=== PATIENT | male | born 1990 ===

== ENCOUNTER 2023-05-29 19:48 | Inpatient (IN) | payer MEDICAID, SELFPAY ==
[2023-05-29 19:59] VITALS: BP 140/92; PULSE 61; RESP 18; TEMP 36.8; O2SAT 99
[2023-05-29 20:02] VITALS: BMI 21.1
[2023-05-29 20:43] VITALS: BP 140/92; PULSE 61; RESP 18; TEMP 36.8; O2SAT 99
[2023-05-29] MEDS: nicotine 2 mg Gum BUCCAL (20:48)
[2023-05-30 06:00] VITALS: BP 118/78; PULSE 55; RESP 20; TEMP 36.6; O2SAT 98
--- NOTE | 2023-05-30 06:40 | W.PM.NPUH&PS ---
Providers/Chief Complaint Admitting Physician: Nasim Casarez MD [facility] NPU History of Present Illness Yosi Garcia is a 32 year old male who presented to the outside emergency department reporting suicidal thoughts and some symptoms of psychosis. He reports that he had been on previous medications but he is unclear how effective they were. He was transferred to [facility] and admitted to the neuropsychiatric unit for definitive treatment of those issues. CHIEF COMPLAINT Patient was brought to the hospital by his mother, but he doesn't believe he has any issues. HISTORY OF THE PRESENT COMPLAINT The patient, Yosi, reported that he has been admitted to a psychiatric hospital three times, including the current admission. He mentioned that he has been attending some classes, but did not specify the nature of these classes. He reported that he has not been taking any psychiatric medication regularly. Previously, he was prescribed Effexor, Prazosin, and Abilify, but he stopped taking them due to stomach discomfort. He could not recall the name of another medication that was given to him. Yosi reported that he smokes about a pack of cigarettes a day. He does not drink alcohol or use marijuana frequently. He denied any use of cocaine, methamphetamines, or opiates. He has never been to rehab, but he has been charged with paraphernalia, underage drinking, and possession. Regarding his mental health, Yosi stated that he does not have many issues and that he was doing well before his hospital admission. He mentioned that he was brought to the hospital because his mother was having problems, but he did not specify what these problems were. He reported that he was not experiencing depression or anxiety, and he did not feel that he was struggling with anything. He mentioned that he sometimes hears voices or sees things that others cannot, but he did not specify the frequency or severity of these experiences. He also reported frequent nightmares, but did not provide details about these nightmares. Yosi expressed frustration with his current situation, stating that he has been trying to get away from community outreach and the cycle of being in county or group home. He reported that he has been given various medications in response to his complaints about his situation. Yosi reported that he has three children, aged between 7 and 16, but he has not spoken to them in a while. He has been in a relationship with one person for 12 years, but it is unclear whether they are currently together. He has held a job for four years, doing labor work in a restaurant. He currently lives in a house with his mother. He has been in residential or group home twice, with the longest sentence being two years. Regarding his mood, Yosi did not report any current thoughts of self-harm or harm to others. He did not report any current feelings of paranoia or hallucinations. He did not raise any concerns or ask any questions during the consultation. MENTAL HEALTH HISTORY Patient has been in a psychiatric hospital twice before. He has been prescribed Effexor, prazosin and Abilify in the past but stopped due to stomach issues. He has also been involved in community outreach programs. SOCIAL HISTORY Patient smokes a pack of cigarettes a day. He doesn't drink alcohol often and doesn't use cannabis or other drugs. He has been in residential twice, the longest time being two years. He has three children whom he doesn't have contact with. He has worked in labor for four years. He currently lives with his mother. Meds NPU Home Medications Medication Instructions Recorded Confirmed Last Taken Type No Known Home Medications 05/29/23 05/29/23 Unknown History Allergies Allergy/AdvReac Type Severity Reaction Status Date / Time Penicillins Allergy Unknown ALGY-Anaphy Verified 05/29/23 20:10 laxis Mental Status Exam MSE Comments: This is an underweight white male in hospital scrubs with limited grooming and eye contact. No abnormal movements except for. Mostly cooperative with exam in mild distress. Speech was decreased rate normal volume. Mood described as okay, affect odd. Thought process organized but confused at times. Thought content: Patient denied current suicidal or homicidal ideation, there were no delusions reported and he seemed somewhat guarded, he endorsed auditory but denied visual hallucinations. Patient denies having depression or anxiety. He admits to occasional paranoia and hearing voices, but doesn't consider it a problem. Attention and concentration were limited and memory seemed unreliable at times but none were formally tested. He is alert and oriented times person and place. Insight, judgment and impulse control are limited versus impaired. Vitals/I&O/Wt Last Vital Signs Temp 97.9 F 05/30/23 06:00 Pulse 55 L 05/30/23 06:00 Resp 20 H 05/30/23 06:00 BP 118/78 05/30/23 06:00 Pulse Ox 98 05/30/23 06:00 O2 Del Method Room Air 05/30/23 06:00 Weight last 48 hrs Weight 61.235 kg A&P Assessment and plan (1) Psychosis: Plan This is a 32year old white male with possible history of trauma who presents with ambiguous symptoms that seem consistent with psychosis and seems to be in denial about his mental health issues. He has a history of non-compliance with medication and has been in a psychiatric hospital twice before. 1.Continue current medications 2.start Invega 6 mg p.o. daily. 3.Encourage individual, group and milieu therapy 4.Continue q-15 minute check for safety 5.Get some collateral information. Involuntary Hold Information 96 Hour Hold: 96 Hour Involuntary Admission: No Attestations NPU Medical Necessity Statement*: Inpatient hospitalization is medically necessary and the clinically appropriate intervention at this time. We will monitor medications and make changes as indicated. Patient will be in the hospital for over two midnights. Likely length of stay is 3-5 days. Coding Level of Care Code Acute Code for [facility] Diagnoses Psychosis F29
[2023-05-30] MEDS: nicotine 2 mg Gum BUCCAL ×5 (07:46→21:54)
[2023-05-30] MEDS: multivitamin therapeutic Tablet 1 TAB PO (09:37)
[2023-05-30] MEDS: thiamine 100 mg Tablet PO (09:37)
[2023-05-30] MEDS: folic acid 1 mg Tablet PO (09:37)
--- NOTE | 2023-05-30 09:48 | PC.NURSE ---
Patient requested trileptal this morning and states he takes it at home. When asked what pharmacy he obtained them from and what doctor, he could not provide either. This RN then called [facility], the hospital he was transferred from, and they stated he did not verify his medications as he couldn't give them a current pharmacy either.
--- NOTE | 2023-05-30 12:12 | PC.NURSE ---
Patient's mother called and verified that the patient uses [facility] in [place], [place]. This RN then called the pharmacy and verified Dr. German Cook, from [facility] in [place], [place], had prescribed him venlafaxine 150mg once daily in the morning, prazosin 1mg once daily at bedtime, wellbutrin xl 150mg once daily, and abilify 20mg once daily. However, they stated he had never picked up the medications. Dr. Casarez was notified and no new orders were given at this time.
[2023-05-30] MEDS: paliperidone ER 6 mg Tablet PO (12:40)
[2023-05-30 12:57] VITALS: BP 129/93; PULSE 61; RESP 16; TEMP 36.8; O2SAT 98
[2023-05-30 20:49] VITALS: BP 124/89; PULSE 76; RESP 16; TEMP 37; O2SAT 96
--- NOTE | 2023-05-30 21:11 | PC.NURSE ---
IN BED RESTING, DENIES SI/HI AND AVH AT THIS TIME. RATES ANXIETY AND DEPRESSION 0/10. PT DENIES THE NEED FOR ANY PRN MEDICATIONS AT THIS TIME. DENIES PAIN. ALL QUESTIONS ANSWERED AND SUPPORT VOICED.
[2023-05-31 06:00] VITALS: BP 122/86; PULSE 84; RESP 18; TEMP 36.7; O2SAT 98
[2023-05-31] MEDS: paliperidone ER 6 mg Tablet PO (08:57)
[2023-05-31] MEDS: multivitamin therapeutic Tablet 1 TAB PO (08:57)
[2023-05-31] MEDS: folic acid 1 mg Tablet PO (08:57)
[2023-05-31] MEDS: ondansetron 4 MG Tablet PO (08:57)
[2023-05-31] MEDS: thiamine 100 mg Tablet PO (08:57)
[2023-05-31] MEDS: nicotine 2 mg Gum BUCCAL ×3 (08:59→15:20)
[2023-05-31 13:54] VITALS: BP 136/99; PULSE 70; RESP 13; TEMP 36.9; O2SAT 97
--- NOTE | 2023-05-31 16:15 | PC.NURSE ---
Patient was read 96 hour hold rights. Patient was given a copy of his 96 hour hold paperwork and was asked if he had any questions at this time. Patient expressed that he did not.
--- NOTE | 2023-05-31 18:06 | W.PM.NPUPNS ---
Subjective NPU Subjective: 32-year-old male admitted with psychosis and bizarre behavior. Patient had stated that he needed to leave here and stated that the commercial insurance underwriter of the note was being lied to by his mother. The patient had acknowledged that he had reported having problems with his penis and had reported having a change in its colors as stated on his affidavit. The patient had acknowledged that others were somehow trying to cause him to be here unnecessarily. Previous records were reviewed the patient had been persistently complained of hearing voices and the mother had indeed reported that the patient had been throwing objects at something that was not present. The patient had stated that he had been compliant with his medications including Effexor and prazosin but it was noted that the patient had not filled out his antipsychotic medication after these medications were never picked up from the pharmacy. Mental Status Exam MSE Comments: This is an underweight white male in hospital scrubs with limited grooming and eye contact who was pacing the hallways. No abnormal movements except for psychomotor moderate agitation. Speech was decreased in rate normal volume with increased latency in speech. Mood described as fine. His affect was blunted and mood congruent. Thought process linear but confused later on interview. thought content: Patient denied current suicidal or homicidal ideation, He remained actively paranoid. He endorsed auditory hallucinations but denied visual hallucinations. Patient denies having depression or anxiety. Attention and concentration were limited and memory seemed unreliable at times but none were formally tested. He is alert and oriented times person and place but not time. Insight, judgment and impulse control are limited versus impaired. Vitals/I&O/Wt Last Vital Signs Temp 98.5 F 05/31/23 13:54 Pulse 70 05/31/23 13:54 Resp 13 05/31/23 13:54 BP 136/99 05/31/23 13:54 Pulse Ox 97 05/31/23 13:54 O2 Del Method Room Air 05/31/23 06:00 Weight last 48 hrs Weight 61.235 kg A&P Assessment and plan (1) Psychosis: Plan This is a 32year old white male with possible history of trauma who presents with ambiguous symptoms that seem consistent with psychosis and seems to be in denial about his mental health issues. He has a history of non-compliance with medication and has been in a psychiatric hospital twice before. 1.Patient placed on involuntary hold. 2.Continue Invega 6 mg p.o. daily. 3.Encourage individual, group and milieu therapy 4.Continue q-15 minute check for safety 5.Get some collateral information. Involuntary Hold Information 96 Hour Hold: 96 Hour Involuntary Admission: No Attestations NPU Medical Necessity Statement*: Inpatient hospitalization is medically necessary and the clinically appropriate intervention at this time. We will monitor medications and make changes as indicated. Patient's likely length of stay is 3-5 days. Coding Level of Care Code Acute Code for [facility] Fwd Diagnoses Psychosis F29
[2023-05-31] MEDS: hyDROXYzine 25 mg Capsule 50 MG PO (20:23)
[2023-05-31] MEDS: trazodone 50 mg Tablet PO (20:23)
[2023-05-31 20:24] VITALS: BP 132/84; PULSE 79; RESP 17; TEMP 36.8; O2SAT 98
--- NOTE | 2023-05-31 21:17 | PC.NURSE ---
SITTING UP IN BED. DENIES SI/HI AND AVH AT THIS TIME. PT AFFECT IS FLAT AND HE IS GUARDED WITH STAFF. RATES ANXIETY AND DEPRESSION 0/10 BUT REQUEST ANXIETY MEDIATIONS AND MEDICATIONS FOR SLEEP. PT WAS GIVEN VISTARIL 50 MG ORDERED FOR ANXIETY AND TRAZODONE 50 MG FOR SLEEP. DENIES PAIN. ALL QUESTIONS ANSWERED AND SUPPORT WAS VOICED.
--- NOTE | 2023-06-01 00:46 | PC.NURSE ---
[age] PT CAME OUT TO NURSES STATION STRIPPED OFF HIS CLOTHING. PT WAS EDUCATED TO PUT CLOTHING PT STATED I'M SICK OF YOU TALKING TO YOUR IMAGINARY FRIEND. SO FUCK YOU. PT THEN WENT TO THE BATHROOM ON SOUTH SIDE AND GOT INTO THE SHOWER. SECURITY WAS CALLED FOR STAND BY. PT STATED SOMETHING CAME OVER ME AND I THOUGHT I SHIT MYSELF. PT WAS GIVEN NEW CLOTHING, TOWELS AND INSTRUCTED PT TO PUT CLOTHING ON AND GO TO BED. PT AGREED AND WENT TO BED AND IS CURRENTLY RESTING WITH EYES CLOSED.
--- NOTE | 2023-06-01 05:24 | PC.NURSE ---
PT RECEIVED TRAZODONE AND VISTARIL EARLIER IN THE SHIFT. PT DID AWAKE AROUND MIDNIGHT BUT WAS ABLE TO BE REDIRECTED BACK TO BED. MEDICATIONS DEEMED EFFECTIVE. PT HAS SLEPT APPROXIMATELY 9 HOURS THIS SHIFT. PT CONTINUES TO REST WITH EYES CLOSED NO DISTRESS NOTED.
[2023-06-01 06:00] VITALS: BP 108/73; PULSE 61; RESP 18; O2SAT 98
[2023-06-01] MEDS: nicotine 4 mg lozenge MUCOUS MEM (09:05)
[2023-06-01] MEDS: multivitamin therapeutic Tablet 1 TAB PO (09:22)
[2023-06-01] MEDS: paliperidone ER 6 mg Tablet PO (09:22)
[2023-06-01] MEDS: folic acid 1 mg Tablet PO (09:22)
[2023-06-01] MEDS: thiamine 100 mg Tablet PO (09:22)
--- NOTE | 2023-06-01 09:29 | PC.NURSE ---
patient states that he is feeling okay. Patient denies SI, HI, AVH, depression, and anxiety. Patient took morning meds with no issues
--- NOTE | 2023-06-01 09:30 | PC.NURSE ---
patient states that he is feeling okay. Patient denies SI, HI, AVH, depression, and anxiety. Patient took morning meds with no issues
[2023-06-01] MEDS: nicotine 2 mg Gum BUCCAL ×3 (12:34→20:34)
[2023-06-01 14:00] VITALS: BP 117/74; PULSE 70; RESP 16; TEMP 36.9; O2SAT 96
--- NOTE | 2023-06-01 16:20 | P.NPUPN_ITS ---
Subjective NPU Subjective: 32-year-old male admitted with psychosis and bizarre behavior. The patient reported that he needed to go home. He was unable to elaborate as to why or where he was going to go. He had continued to state that the things that the police and his mother had reported were lysed. He had been unwilling to elaborate regarding the affidavit which had stated that the patient had stated that the patient had made repeated requests for someone to help him with his penis as it had changed colors repeatedly in front of him. The patient had reported that he did not need medications. Patient's mother had prescribed and per provided affidavit suggesting that the patient had been diagnosed with s chizophrenia. He had continued to suggest that the treatment team not speak with the patient's mother. He had remained guarded on the milieu. Patient's mother had reported that the patient had been forgetful and had become obsessed with transformation occurring in his private parts. Mental Status Exam MSE Comments: This is an underweight white male in hospital scrubs with limited grooming and eye contact who was pacing the hallways with a blanket wrapped around his head like a druid. No abnormal movements except for moderate psychomotor agitation. Speech was decreased in rate, normal volume with increased latency in speech. Mood described as okay. His affect was blunted and mood congruent. Thought process was linear but superficial. thought content: Patient denied current suicidal or homicidal ideation, He remained actively paranoid. He denied auditory hallucinations and denied visual hallucinations. Attention and concentration were limited and memory seemed unreliable at times but none were formally tested. He is alert and oriented times person and place but not time. Insight, judgment and impulse control are limited versus impaired. Vitals/I&O/Wt Last Vital Signs Temp 98.5 F 06/01/23 14:00 Pulse 70 06/01/23 14:00 Resp 16 06/01/23 14:00 BP 117/74 06/01/23 14:00 Pulse Ox 96 06/01/23 14:00 O2 Del Method Room Air 06/01/23 06:00 A&P Assessment and plan (1) Psychosis: Plan This is a 32year old white male with possible history of trauma who presents with ambiguous symptoms that seem consistent with psychosis and seems to be in denial about his mental health issues. He has a history of non-compliance with medication and has been in a psychiatric hospital twice before. 1.Patient placed on involuntary hold. 2.Continue Invega 6 mg p.o. daily. 3.Encourage individual, group and milieu therapy 4.Continue q-15 minute check for safety 5.Get some collateral information. Involuntary Hold Information 96 Hour Hold: 96 Hour Involuntary Admission: No Attestations NPU Medical Necessity Statement*: Inpatient hospitalization is medically necessary and the clinically appropriate intervention at this time. We will monitor medications and make changes as indicated. Patient's likely length of stay is 3-5 days. Coding Level of Care Code Acute Code for [facility] Fwd Diagnoses Psychosis F29
[2023-06-01] MEDS: trazodone 50 mg Tablet PO ×3 (20:34→22:00)
[2023-06-01] MEDS: haloperidol 5 mg Tablet PO (20:34)
[2023-06-01 20:41] VITALS: BP 118/76; PULSE 96; RESP 18; TEMP 36.8; O2SAT 97
--- NOTE | 2023-06-01 21:12 | PC.NURSE ---
RESTING IN BED AROUSES TO VOICE. DENIES PAIN. DENIES SI/HI AND AVH AT THIS TIME. RATES ANXIETY AND DEPRESSION 0/10. PT DOES REQUEST ANXIETY MEDICATIONS AND MEDICATIONS TO SLEEP. PT WAS GIVEN TRAZODONE 50 MG ORDERED FOR INSOMNIA AND HALDOL 5 MG FOR INCREASED ANXIETY. PT WAS GIVEN A SECOND DOSE OF TRAZODONE 50MG DUE TO THE FIRST ONE NOT HELPING. PT IS NOTED TO HAVE A FLAT AFFECT AND IS GUARDED WITH STAFF. ALL QUESTIONS ANSWERED AND SUPPORT WAS VOICED.
--- NOTE | 2023-06-02 05:02 | PC.NURSE ---
PT RECEIVED PRN MEDICATIONS EARLY IN THE SHIFT. PT RECEIVED TRAZODONE 50 MG TIMES 2. PT ALSO RECEIVED HALDOL 5 MG FOR REPORTS OF INCREASED ANXIETY. MEDICATIONS DEEMED EFFECTIVE. PT WAS ABLE TO REST THROUGH OUT THE SHIFT AND HAD NO OTHER COMPLAINTS OF ANXIETY. PT WAS ABLE TO SLEEP APPROXIMATELY 8-9 HOURS THIS SHIFT. PT CONTINUES TO REST WITH EYES CLOSED WITH NO DISTRESS NOTED AT THIS TIME.
[2023-06-02 06:00] VITALS: RESP 16
[2023-06-02] MEDS: multivitamin therapeutic Tablet 1 TAB PO (08:18)
[2023-06-02] MEDS: folic acid 1 mg Tablet PO (08:18)
[2023-06-02] MEDS: paliperidone ER 6 mg Tablet PO (08:18)
[2023-06-02] MEDS: thiamine 100 mg Tablet PO (08:19)
[2023-06-02] MEDS: nicotine 2 mg Gum BUCCAL ×3 (08:19→19:58)
[2023-06-02] MEDS: nicotine 4 mg lozenge MUCOUS MEM ×2 (10:32→15:08)
[2023-06-02 14:00] VITALS: BP 135/94; PULSE 87; RESP 20; TEMP 36.8; O2SAT 96
--- NOTE | 2023-06-02 15:05 | W.PM.NPUPNS ---
Subjective NPU Subjective: 32-year-old male admitted with psychosis and bizarre behavior. The patient had continued to report that he wished to go home but was unable to provide any meaningful information as to where he was going to go and how he was going to get home. He had spent much of the day in his room. He had reported being bored here. He continued to make bizarre statements here on the unit and stated that other people around here work told lies and that is why he had come here into the hospital. The patient had been naked on the unit and required signficant promting by nursing staff to put on his clothes yesterday. Mental Status Exam MSE Comments: This is an underweight white male in hospital scrubs with limited grooming and eye contact who was lying in his room with a blanket wrapped around his head. No abnormal movements except for moderate psychomotor agitation. Speech was decreased in rate, normal volume with increased latency in speech. Mood described as fine. His affect was odd and subdued. Thought process was nonlinear and perseverative about wanting to leave. thought content: Patient denied current suicidal or homicidal ideation, He remained actively paranoid. He denied auditory hallucinations and denied visual hallucinations. Attention and concentration were limited and memory seemed unreliable at times but none were formally tested. He is alert and oriented times person and place but not time. Insight, judgment and impulse control are limited versus impaired. Vitals/I&O/Wt Last Vital Signs Temp 98.2 F 06/01/23 20:41 Pulse 96 06/01/23 20:41 Resp 16 06/02/23 06:00 BP 118/76 06/01/23 20:41 Pulse Ox 97 06/01/23 20:41 O2 Del Method Room Air 06/01/23 20:41 A&P Assessment and plan (1) Psychosis: Plan This is a 32year old white male with possible history of trauma who presents with ambiguous symptoms that seem consistent with psychosis and seems to be in denial about his mental health issues. He has a history of non-compliance with medication and has been in a psychiatric hospital twice before. 1.Patient placed on involuntary hold. 2.Increase Invega 9 mg p.o. daily. 3.Encourage individual, group and milieu therapy 4.Continue q-15 minute check for safety 5.Get some collateral information. Involuntary Hold Information 96 Hour Hold: 96 Hour Involuntary Admission: No Attestations NPU Medical Necessity Statement*: Inpatient hospitalization is medically necessary and the clinically appropriate intervention at this time. We will monitor medications and make changes as indicated. Patient's likely length of stay is 3-5 days. Coding Level of Care Code Acute Code for [facility] Fwd Diagnoses Psychosis F29
[2023-06-02 20:22] VITALS: BP 130/85; PULSE 96; RESP 18; TEMP 36.9; O2SAT 99
[2023-06-03 05:50] VITALS: BP 131/93; PULSE 68; RESP 18; TEMP 36.3; O2SAT 98
[2023-06-03] MEDS: thiamine 100 mg Tablet PO (08:33)
[2023-06-03] MEDS: folic acid 1 mg Tablet PO (08:33)
[2023-06-03] MEDS: multivitamin therapeutic Tablet 1 TAB PO (08:33)
[2023-06-03] MEDS: paliperidone ER 9 mg Tablet PO (08:33)
[2023-06-03] MEDS: nicotine 2 mg Gum BUCCAL ×4 (08:35→20:24)
[2023-06-03] MEDS: nicotine 4 mg lozenge MUCOUS MEM ×2 (10:37→18:32)
[2023-06-03 14:00] VITALS: BP 120/80; PULSE 93; RESP 20; TEMP 36.9; O2SAT 97
--- NOTE | 2023-06-03 16:48 | W.PM.NPUPNS ---
Subjective NPU Subjective: 32-year-old male admitted with psychosis and bizarre behavior. Patient continued to report that he wished to go home and stated that if he was unable to go home that he did not wish to discuss his problems any further. There was no episodes of aggression. He had continued to appear suspicious of others intentions. He had reported having no thoughts of hurting himself or others. He continued to be engaged in a circular argument stating that he had a place to go home but at the same time did not feel comfortable with having family member speak with this senior medical writer to discuss the issues that had led to his hospitalization. Mental Status Exam MSE Comments: This is an underweight white male in hospital scrubs with limited grooming and fleeting eye contact, while walking without clear purpose. No abnormal movements except for moderate psychomotor agitation. Speech was decreased in rate, normal volume with increased latency in speech. Mood described as upset. His affect was odd and subdued. Thought process was nonlinear and perseverative about wanting to leave. thought content: Patient denied current suicidal or homicidal ideation, He remained actively paranoid. He denied auditory hallucinations and denied visual hallucinations. Attention and concentration were limited and memory seemed unreliable at times but none were formally tested. He is alert and oriented times person and place but not time. Insight, judgment and impulse control are limited versus impaired. Vitals/I&O/Wt Last Vital Signs Temp 98.5 F 06/03/23 14:00 Pulse 93 06/03/23 14:00 Resp 20 H 06/03/23 14:00 BP 120/80 06/03/23 14:00 Pulse Ox 97 06/03/23 14:00 O2 Del Method Room Air 06/03/23 05:50 Weight last 48 hrs Weight 81.374 kg A&P Assessment and plan (1) Psychosis: Plan This is a 32year old white male with possible history of trauma who presents with ambiguous symptoms that seem consistent with psychosis and seems to be in denial about his mental health issues. He has a history of non-compliance with medication and has been in a psychiatric hospital twice before. 1.Patient placed on involuntary hold. 2.Continue Invega 9 mg p.o. daily. 3.Encourage individual, group and milieu therapy 4.Continue q-15 minute check for safety 5.Get some collateral information. Involuntary Hold Information 96 Hour Hold: 96 Hour Involuntary Admission: No Attestations NPU Medical Necessity Statement*: Inpatient hospitalization is medically necessary and the clinically appropriate intervention at this time. We will monitor medications and make changes as indicated. Patient's likely length of stay is 4-6 days. Coding Level of Care Code Acute Code for [facility]wd Diagnoses Psychosis F29
[2023-06-03 20:25] VITALS: BP 135/91; PULSE 82; RESP 18; TEMP 36.8; O2SAT 98
[2023-06-03] MEDS: trazodone 50 mg Tablet PO (21:36)
[2023-06-03] MEDS: hyDROXYzine 25 mg Capsule 50 MG PO (21:36)
[2023-06-04] MEDS: nicotine 4 mg lozenge MUCOUS MEM ×3 (08:33→19:46)
[2023-06-04] MEDS: multivitamin therapeutic Tablet 1 TAB PO (09:58)
[2023-06-04] MEDS: paliperidone ER 9 mg Tablet PO (09:58)
[2023-06-04] MEDS: folic acid 1 mg Tablet PO (09:58)
[2023-06-04] MEDS: thiamine 100 mg Tablet PO (09:59)
[2023-06-04] MEDS: nicotine 2 mg Gum BUCCAL ×2 (11:36→18:21)
[2023-06-04 14:00] VITALS: BP 158/97; PULSE 105; RESP 18; TEMP 36.6; O2SAT 97
[2023-06-04] MEDS: haloperidol 5 mg Tablet PO (15:38)
--- NOTE | 2023-06-04 17:38 | W.PM.NPUPNS ---
Subjective NPU Subjective: 32-year-old male admitted with psychosis and bizarre behavior. Patient continued to perseverate about wanting to return home. He continued to state that he needed to have something removed from him but did not elaborate. He stated continually that he needed to be discharged home and stated that he was voluntarily placed here despite being informed numerous times that he was now involuntarily placed here. He had required Haldol as needed due to agitation. He continued to pace the hallway while appearing minimally engaged both in group and in conversation. He still remained uncertain in regards to why he had been brought here other than stating that the police had manipulated the situation. He had reported that the medication had been working better but then simultaneously and soon afterwards stated that he did not need medication. Mental Status Exam MSE Comments: This is an underweight white male in hospital scrubs with limited grooming and fleeting eye contact, while pacing without clear purpose. No abnormal movements except for moderate psychomotor agitation today. Speech was decreased in rate, normal volume with increased latency in speech. Mood described as upset. His affect was bizarre. Thought process was nonlinear and perseverative about wanting to leave. thought content: Patient denied current suicidal or homicidal ideation, He remained actively paranoid. He denied auditory hallucinations and denied visual hallucinations. Attention and concentration were limited and memory seemed unreliable at times but none were formally tested. He is alert and oriented times person and place but not time. Insight, judgment and impulse control are all impaired. Vitals/I&O/Wt Last Vital Signs Temp 98 F 06/04/23 14:00 Pulse 105 H 06/04/23 14:00 Resp 18 06/04/23 14:00 BP 158/97 06/04/23 14:00 Pulse Ox 97 06/04/23 14:00 O2 Del Method Room Air 06/03/23 20:25 Weight last 48 hrs Weight 81.374 kg A&P Assessment and plan (1) Psychosis: Plan This is a 32year old white male with possible history of trauma who presents with ambiguous symptoms that seem consistent with psychosis and seems to be in denial about his mental health issues. He has a history of non-compliance with medication and has been in a psychiatric hospital twice before. 1.Patient placed on involuntary hold. 2.Continue Invega 9 mg p.o. daily. 3.Encourage individual, group and milieu therapy 4.Continue q-15 minute check for safety 5.Get some collateral information. Involuntary Hold Information 96 Hour Hold: 96 Hour Involuntary Admission: No Attestations NPU Medical Necessity Statement*: Inpatient hospitalization is medically necessary and the clinically appropriate intervention at this time. We will monitor medications and make changes as indicated. Patient's likely length of stay is 4-6 days. Coding Level of Care Code Acute Code for [facility] Fwd Diagnoses Psychosis F29
[2023-06-04] MEDS: OLANZapine 5 mg ODT 2.5 MG PO (19:45)
--- NOTE | 2023-06-04 21:25 | PC.NURSE ---
IN BED AROUSES TO VOICE. PT DENIES PAIN. DENIES SI/HI AND AVH AT THIS TIME. PT RATES ANXIETY 6/10 AND DEPRESSION 0/10. PT TOOK ZYDIS 2.5 MG ORDERED FOR HS MEDICATIONS. PT IS NOTED TO HAVE A FLAT AFFECT AND GUARDED WITH STAFF. PT DECLINES NEED FOR PRN MEDICATIONS. ALL QUESTIONS ANSWERED AND SUPPORT VOICED.
[2023-06-04 21:33] VITALS: BP 124/87; PULSE 99; RESP 18; TEMP 36.7; O2SAT 97
--- NOTE | 2023-06-05 05:05 | PC.NURSE ---
PT DECLINED ANY NEED FOR PRN MEDICATIONS. PT DID TAKE ZYDIS 2.5 MG SCHEDULED. PT WAS ABLE TO SLEEP ON AND OFF THIS SHIFT, SLEEPING APPROXIMATELY 7-8 HOURS ON AND OFF. PT CONTINUES TO REST WITH EYES CLOSED WITH NO DISTRESS NOTED AT THIS TIME.
[2023-06-05 06:00] VITALS: BP 122/75; PULSE 97; RESP 15; O2SAT 98
[2023-06-05] MEDS: thiamine 100 mg Tablet PO (07:58)
[2023-06-05] MEDS: nicotine 4 mg lozenge MUCOUS MEM ×3 (07:58→12:22)
[2023-06-05] MEDS: folic acid 1 mg Tablet PO (07:59)
[2023-06-05] MEDS: paliperidone ER 9 mg Tablet PO (07:59)
[2023-06-05] MEDS: multivitamin therapeutic Tablet 1 TAB PO (07:59)
--- NOTE | 2023-06-05 11:26 | P.NPUDS_ITS ---
Diagnoses at Discharge Discharge Diagnosis (1) Psychosis: Status: Acute Reason for Visit Reason for Visit: Brief History: History of Present Illness Yosi Garcia is a 32 year old male who presented to the outside emergency department reporting suicidal thoughts and some symptoms of psychosis. He reports that he had been on previous medications but he is unclear how effective they were. He was transferred to [facility] and admitted to the neuropsychiatric unit for definitive treatment of those issues. CHIEF COMPLAINT Patient was brought to the hospital by his mother, but he doesn't believe he has any issues. HISTORY OF THE PRESENT COMPLAINT The patient, Yosi, reported that he has been admitted to a psychiatric ostal three times, including the current admission. He mentioned that he has been attending some classes, but did not specify the nature of these classes. He reported that he has not been taking any psychiatric medication regularly. Previously, he was prescribed Effexor, Prazosin, and Abilify, but he stopped taking them due to stomach discomfort. He could not recall the name of another medication that was given to him. Yosi reported that he smokes about a pack of cigarettes a day. He does not drink alcohol or use marijuana frequently. He denied any use of cocaine, methamphetamines, or opiates. He has never been to rehab, but he has been charged with paraphernalia, underage drinking, and possession. Regarding his mental health, Yosi stated that he does not have many issues and that he was doing well before his hospital admission. He mentioned that he was brought to the hospital because his mother was having problems, but he did not specify what these problems were. He reported that he was not experiencing depression or anxiety, and he did not feel that he was struggling with anything. He mentioned that he sometimes hears voices or sees things that others cannot, but he did not specify the frequency or severity of these experiences. He also reported frequent nightmares, but did not provide details about these nightmares. Yosi expressed frustration with his current situation, stating that he has been trying to get away from community outreach and the cycle of being in county or senior living. He reported that he has been given various medications in response to his complaints about his situation. Yosi reported that he has three children, aged between 7 and 16, but he has not spoken to them in a while. He has been in a relationship with one person for 12 years, but it is unclear whether they are currently together. He has held a job for four years, doing labor work in a restaurant. He currently lives in a house with his mother. He has been in penitentiary or senior living twice, with the longest sentence being two years. Regarding his mood, Yosi did not report any current thoughts of self-harm or harm to others. He did not report any current feelings of paranoia or hallucinations. He did not raise any concerns or ask any questions during the consultation. MENTAL HEALTH HISTORY Patient has been in a psychiatric hospital twice before. He has been prescribed Effexor, prazosin and Abilify in the past but stopped due to stomach issues. He has also been involved in community outreach programs. SOCIAL HISTORY Patient smokes a pack of cigarettes a day. He doesn't drink alcohol often and doesn't use cannabis or other drugs. He has been in penitentiary twice, the longest time being two years. He has three children whom he doesn't have contact with. He has worked in labor for four years. He currently lives with his mother. Hospital Course Hospital Course During the hospitalization, the patient had routine laboratory studies which were within normal limits except for a few outliers.? Additionally, there was a general medical evaluation which was also within normal limits and revealed no new acute processes.? At the time of discharge, lethality was denied and psychosis was resolving.? Mood and anxiety were well managed.? The patient endorsed a plan to avoid all drugs of abuse and follow up with the aftercare recommendations of the treatment team.? The patient was evaluated and deemed to be absent credible lethality and had achieved the maximum benefit from an inpatient hospitalization, and so was discharged.? The patient was started on Paliperidone at 3mg and titrated up to a dose of 9mg daily with noted improvement. During his stay, he was placed on an extended involuntary hold but improved to the extent that the treatment was able to discharge him home without incident. Involuntary Hold Information 96 Hour Hold: 96 Hour Involuntary Admission: No Mental Status Exam MSE Comments: This is an normal weight white male in hospital scrubs with limited grooming and fleeting eye contact, while pacing the hallway. There was diminished Speech was decreased in rate, normal volume with increased latency in speech. Mood described as okay. His affect was brighter on discharge. Thought process was linear and goal directed today. thought content: Patient denied current suicidal or homicidal ideation, He was not overtly paranoid on discharge. He denied auditory hallucinations and denied visual hallucinations. Attention and concentration were limited and memory seemed unreliable at times but none were formally tested. He is alert and oriented times person and place but not time. Insight was limited. judgment was better. and impulse control are all impaired. Discharge Data Vitals: Last Vital Signs Temp 98.0 F 06/04/23 21:33 Pulse 97 06/05/23 06:00 Resp 15 06/05/23 06:00 BP 122/75 06/05/23 06:00 Pulse Ox 98 06/05/23 06:00 O2 Del Method Room Air 06/05/23 06:00 Discharge Plan Discharge Patient Disposition: Home Condition: Stable Prescriptions: New paliperidone 9 mg Tablet Extended Release 24hr 9 mg PO DAILY 30 Days Qty: 30 0RF paliperidone 9 mg tablet extended release 24hr 9 mg PO DAILY Qty: 30 1RF Discharge Orders: Discharge Order (Routine); Ordered 06/05/23 Ordered By: Jose Becerra Referrals: [facility] [Other] - 4-7 days (Walk in for services Sunday thru Sunday 8am to 4pm.) Discharge Diet: Usual diet Discharge Activity: Resume usual activity Patient Instructions: Paliperidone (By mouth), PTSD (Post Traumatic Stress Disorder) (DC), Opioid Safety Discharge Attestations NPU Time Spent in Discharge Care*: less than 30 min Specific Discharge Activities: Specific discharge activities: educating patient and discussing with block and case maker/social workers/dc planners Coding Level of Care Code Acute Code for g Fwd Diagnoses Psychosis F29
[2023-06-05 11:38] VITALS: BP 122/75; PULSE 97; RESP 15; O2SAT 98
[2023-06-05 14:00] VITALS: BP 141/89; PULSE 104; RESP 13; TEMP 37; O2SAT 97
[2023-06-05] MEDS: nicotine 2 mg Gum BUCCAL (14:28)
== END 2023-06-05 16:13 | disposition home or self-care (01) | DRG 885 ==
PROVIDERS: Admitting Provider Psychiatry & Neurology Psychiatry; Visit Provider Psychiatry & Neurology Psychiatry
DX: F29 Unspecified psychosis not due to a substance or known physiological condition (principal); R45.851 Suicidal ideations; F17.210 Nicotine dependence, cigarettes, uncomplicated; R45.1 Restlessness and agitation; Z91.148 Patient's other noncompliance with medication regimen for other reason
CPT/HCPCS: 97150; 97165; Q0162